=== PATIENT | male | born 1950 | race Caucasian/White ===

== ENCOUNTER 2019-05-29 15:30 | Observation (INO) | payer OTHER, MEDICARE ==
[~2019-05-29] VITALS: Ht 182.9 cm; Wt 104.1 kg
--- NOTE | 2019-05-29 15:35 | NUR ---
PT REFUSED WHEELCHAIR AND AMBULATED TO ROOM WITH A STEADY GAIT.
[2019-05-29 16:22] LABS: HEMATOCRIT 45.9 % (39.0-50.0); IMMATURE GRANULOCYTES 0.6 % (0.0-5.0); MEAN CELL VOLUME 90.5 fL CALC (80.0-100.0); MEAN CORPUSCULAR HGB 31.6 pG CALC (26.0-32.0); MEAN CORPUSCULAR HGB CONC 34.9 g/dL CAL (32.0-36.0); NEUT# 5.28 thou/uL (1.82-7.42); RED BLOOD COUNT 5.07 mill/uL (4.70-6.10); RED CELL DISTRI WIDTH 12.2 % (11.5-15.5)
[2019-05-29 16:29] LABS: ALBUMIN 4.8 g/dL (3.2-5.0); ALKALINE PHOSPHATASE 56 u/l (38-126); ANION GAP 13 (6-22 (CALC)); BILIRUBIN, TOTAL 0.8 mg/dL (0.0-1.4); BUN 22 mg/dL (8-23); BUN/CREATININE RATIO 21 (12-20 (CALC)); CARBON DIOXIDE 28 mmol/l (22-30); CHLORIDE 103 mmol/l (95-108); GFR > 60 ML/MIN (>=60 (CALC)); GFR FOR AFR.AMER. > 60 ML/MIN (>=60 (CALC)); POTASSIUM 4.1 mmol/l (3.5-5.1); SGOT/AST 30 u/l (19-48); SODIUM 140 mmol/l (137-146); TOTAL PROTEIN 7.5 g/dL (6.3-8.2)
--- NOTE | 2019-05-29 16:35 | NUR ---
PT SKIN PWD, NO C/O CP OR SOB, UPDATED PT ON POC. PT AGREEABLE. VSS. PT CONVERSING WITH AT BEDSIDE.
--- NOTE | 2019-05-29 17:00 | NUR ---
PT OR UNABLE TO RELATE HOME MEDS. PT DENIES CP, STATES "I THINK I WAS JUST WORKED UP ABOUT ALL THIS VIRUS STUFF". PT PLEASANT AND COOPERATIVE
--- NOTE | 2019-05-29 18:00 | NUR ---
PT CONSUMED 100% OF MEAL TRAY. UPDATED ON WAIT TIME FOR ADMISSION. PT AGREEBALE AND PLEASANT. CONVERSING WITH AT BEDSIDE. PT DENIES CP OR SOB SINCE ADMITTED TO THE ED
--- NOTE | 2019-05-29 18:45 | NUR ---
TRANSPORTED TO [facility] VIA ON TELE IN NO DISTRESS.
[2019-05-29 19:15] VITALS: BP 152/73
--- NOTE | 2019-05-29 20:15 | NUR ---
PHYSICAL ASSEMENT COMPLETE. 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 PLAN OF CARE REVIEWED W/ PT, PT VERBALIZES UNDERSTANDING AND DENIES QUESTIONS @ THIS TIME. PT DENIES NEEDS @ THIS TIME. CALL SILVER WITHIN REACH, AGREES TO CALL PRN. BED LOCKED IN LOW POSITION W/ BEDRAILS UPX2. ITEMS WITHIN REACH.
[2019-05-29 23:45] VITALS: BP 169/51
--- NOTE | 2019-05-30 00:05 | NUR ---
TROPONIN DRAWN AND SENT TO LAB.
--- NOTE | 2019-05-30 00:15 | NUR ---
VS TAKEN @ [id number] BY FANNIE BROOKS.
--- NOTE | 2019-05-30 01:00 | NUR ---
RESULTED TROPONIN LEVEL NEGATIVE.
--- NOTE | 2019-05-30 01:50 | NUR ---
PT APPEARS TO BE SLEEPING COMFORTABLY, NO APPARENT DISTRESS. RESPIRATIONS REGULAR AND UNLABORED. CALL SILVER REMAINS WITHIN REACH. BED REMAINS LOCKED IN LOW POSITION W/ BEDRAILS UP X2. ITEMS REMAIN WITHIN REACH.
[2019-05-30 04:30] VITALS: BP 138/69
--- NOTE | 2019-05-30 04:45 | NUR ---
VS TAKEN BY FANNIE @ [id number].
--- NOTE | 2019-05-30 07:25 | NUR ---
REPORT RECIEVED FROM ISHMAEL COONEY. PT SITTING UP IN HIGH FOWLERS; ALERT AND ORIENTED. DENIES ANY CHEST PAIN. RESPIRATIONS EVEN AND UNLABORED ON ROOM AIR. ON AIR[place]ORNE/CONTACT PRECAUTIONS PENDING COVID TEST RESULTS. IV SITE APPEARS HEALTHY AND FLUSHES. TELE ON. PLAN OF CARE REVIEWED. PT ENCOURAGED TO VERBALIZE CONCERNS. STATES UNDERSTANDING. SAFETY MEASURES IN PLACE. CALL LIGHT WITHIN REACH.
[2019-05-30 08:00] VITALS: BP 132/69
[2019-05-30 10:35] VITALS: BP 154/74
--- NOTE | 2019-05-30 12:35 | NUR ---
DR. ROTIZ AT BEDSIDE.
[2019-05-30] MEDS ORDERED: CITALOPRAM10 M1 PO (12:38)
[2019-05-30] MEDS ORDERED: MAXIDE1 COMBO PO (12:38)
[2019-05-30] MEDS ORDERED: SIMVASTATIN40 MG PO (12:39)
--- NOTE | 2019-05-30 14:20 | NUR ---
IV site discontinued, cath intact. No edema , no redness, voices no discomfort. BP MED GIVEN.
--- NOTE | 2019-05-30 14:21 | NUR ---
Discharge instructions given. Patient verbalizes understanding of same. Discharged in stable condition via Ambulatory to Home with spouse. All belongings sent with pt.
--- NOTE | 2019-06-01 08:28 | NUR ---
COVID results called to patient with confirmation of name and . Encouraged stay home-stay safe guidelines, frequent handwashing/sanitizing. Patient offers he is feeling much better and complimentary to all staff - very pleased with his visit. Instructed him to seek medical care if needed.
== END 2019-05-30 14:21 | disposition home or self-care (01) | DRG 313 ==
LOC: ED 15:30 → ED-I 16:50 → ED 17:15 → MS2 17:16 → ED-I 17:16 → MS2 17:41
PROVIDERS: Family Medicine; ADMIT Internal Medicine; ATTEND Internal Medicine
DX: R07.9 Chest pain, unspecified (principal); I10 Essential (primary) hypertension; F41.9 Anxiety disorder, unspecified; Z20.828 Contact with and (suspected) exposure to other viral communicable diseases
CPT/HCPCS: G0378